=== PATIENT | male | born 1995 | race Caucasian/White ===

== ENCOUNTER 2020-10-28 15:32 | Emergency (ER) | payer BC ==
[~2020-10-28] VITALS: Ht 185.4 cm; Wt 96.3 kg
[2020-10-28] MEDS ORDERED: METOCLOPRAMIDE HCL 10 MG/2 ML VIAL. IVP ONE (16:15)
[2020-10-28] MEDS ORDERED: KETOROLAC 30 MG/ML VIAL. IVP ONE (16:15)
[2020-10-28] MEDS ORDERED: IV NORMAL SALINE 1,000ML 1,000 ML IV ONE (16:15)
[2020-10-28] MEDS ORDERED: diphenhydrAMINE 50 MG/ML VIAL IVP ONE (16:15)
[2020-10-28] MEDS ORDERED: ACETAMINOPHEN 325 MG TABLET PO ONE (16:15)
--- NOTE | 2020-10-28 17:09 | PHYS DOC ---
Past History Past Medical History: Migraines Past Surgical History: Other Additional Past Surgical Histo: WISDOM TEETH Alcohol Use: Rarely Adult General Chief Complaint Chief Complaint: HEADACHE HPI HPI Patient is a 24-year-old male presents to the emergency department with a chief complaint of ongoing headaches and fevers at home. Patient states he was seen 2 days ago at his primary care physician's office at the [facility] where he was diagnosed with bilateral otitis media and started on 750 mg amoxicillin to take twice a day for 10 days. Patient states he started evening for his first dose. Patient reports that he is having ongoing ear pain and headaches that are mildly relieved with [id number] Tylenol Motrin and Benadryl. Patient states he usually has complete relief with these medications when he gets his headaches. Patient states that he took an equal 8 Excedrin headache medication that helped quite a bit and currently rates his pain at a 5 out of 10. Patient denies nausea, vomiting, diarrhea, abdominal pains. Patient denies neck pains, neck stiffness, visual disturbances, nasal congestion or chest congestion. Patient denies photophobia. Patient denies any pain in his back. Patient denies any rashes of his skin. Patient denies any increased urination or increased thirst. Patient denies any other physical complaints or physical concerns. Patient reports an allergy to codeine. Patient states he does not take any other prescription medications at home. Review of Systems Review of Systems 14 body systems of review of systems have been reviewed. See HPI for pertinent positives and negative responses, otherwise all other systems are negative, nonpertinent or noncontributory. Current Medications Current Medications Current Medications Medications (Trade) Dose Ordered Sig/Nick Start Time Stop Time Status Last Admin Dose Admin Acetaminophen (Tylenol) 650 mg 1X ONCE 10/28/20 16:15 10/28/20 16:16 DC 10/28/20 16:26 650 MG Diphenhydramine HCl (Benadryl) 25 mg 1X ONCE 10/28/20 16:15 10/28/20 16:16 DC 10/28/20 16:23 25 MG Ketorolac Tromethamine (Toradol 30mg Vial) 30 mg 1X ONCE 10/28/20 16:15 10/28/20 16:16 DC 10/28/20 16:22 30 MG Metoclopramide HCl (Reglan Vial) 10 mg 1X ONCE 10/28/20 16:15 10/28/20 16:16 DC 10/28/20 16:24 10 MG Sodium Chloride 1,000 ml @ 1,000 mls/hr 1X ONCE 10/28/20 16:15 10/28/20 17:14 10/28/20 16:18 1,000 MLS/HR Allergies Allergies Allergies Coded Allergies Type Severity Reaction Last Updated Verified codeine Allergy Unknown 10/28/20 Yes Physical Exam Physical Exam Constitutional: Well developed, well nourished, no acute distress, non-toxic appearance. 24-year-old male in no apparent distress. HENT: Normocephalic, atraumatic, bilateral external ears normal, oropharynx moist, no oral exudates, nose normal. Bilateral TMs with air-fluid bubbles, not bulging, intact, no erythema appreciated, no purulence appreciated, bilateral external auditory canals within normal limits, no drainage. There is no lymphadenopathy of the head or neck appreciated. No uvular swelling, no peritonsillar swelling, there is mild peritonsillar erythema without edema. No laryngeal edema appreciated. Patient speaking in normal voice tones, no trismus , no drooling. Eyes: PERRLA, EOMI, conjunctiva normal, no discharge. No papilledema appreciated. Neck: Normal range of motion, no tenderness, supple, no stridor. No meningeal signs, no nuchal rigidity. Cardiovascular:Heart rate regular rhythm, no murmur, heart sounds S1-S2 to auscultation. Lungs & Thorax: Bilateral breath sounds clear to auscultation no adventitious lung sounds appreciated. Abdomen: Bowel sounds normal, soft, no tenderness, no masses, no pulsatile masses. Skin: Warm, dry, no erythema, no rash. Back: No tenderness, no CVA tenderness. Extremities: No tenderness, no cyanosis, no clubbing, ROM intact, no edema. Neurologic: Alert and oriented X 3, normal motor function, normal sensory function, no focal deficits noted. Psychologic: Affect normal, judgement normal, mood normal. Current Patient Data Vital Signs Vital Signs Date Time Temp Pulse Resp B/P (MAP) Pulse Ox O2 Delivery O2 Flow Rate FiO2 10/28/20 15:40 100.5 73 20 135/76 (95) 99 Room Air EKG EKG [] Radiology/Procedures Radiology/Procedures [] Heart Score C/O Chest Pain: No Risk Factors: Risk Factors: DM, Current or recent (<one month) smoker, HTN, HLP, family history of CAD, obesity. Risk Scores: Risk Factors: DM, Current or recent (<one month) smoker, HTN, HLP, family history of CAD, obesity. Course & Med Decision Making Course & Med Decision Making Pertinent Labs and Imaging studies reviewed. (See chart for details) 24-year-old male, vital signs reviewed, presents emergency department concerning a headache for 4 days. Patient's physical examination was unremarkable, patient did have a fever of 100.5 during triage, 650 mg p.o. Tylenol was ordered, did complain of moderate headache pain and rated a 5 out of 10. Patient denied a thunderclap onset, states his head pain is just been throbbing since he come down with his bilateral ear pains. Patient did not have any signs of meningitis. Initiated a headache cocktail with 1 L normal saline, 30 mg Toradol, 10 mg Reglan, 25 mg Benadryl IV infusion. Will wait a period of time and reevaluate patient. Headache cocktail infusion completed, upon reevaluation of the patient bedside vital signs are within normal limits, his oral temperature was 99.1. Patient states good relief of headache pains rating between a 0 and a 1. Patient states he is ready to go home. Discussed with patient to add [id number] Sudafed and increase his fluid intake during his antibiotic regimen to help with symptoms. Discussed with patient taking Tylenol and/or Motrin for fevers or chills at home. Patient gave verbal understanding of discharge home instructions, follow-up with PCP on Friday for reevaluation of symptoms, return to ER precautions and concerns, states he will continue to take his antibiotic regimen as directed by his primary care doctor, patient was discharged home without incident. Patient left from ER with steady gait, was nontoxic, was in no apparent distress. Dragon Disclaimer Dragon Disclaimer This electronic medical record was generated, in whole or in part, using a voice recognition dictation system. Departure Departure: Impression: Primary Impression: Headache Additional Impression: Upper respiratory infection Disposition: HOME / SELF CARE / HOMELESS Condition: GOOD Referrals: PCP,NO (PCP) Patient Instructions: General Headache Without Cause, Upper Respiratory Infection, Adult Additional Instructions: You were seen today in the emergency department for headache that has been going on for 4 days, you were diagnosed with bilateral ear infection with your previous care provider and started on amoxicillin regimen. You stated that the treatment today in the emergency department helped relieve your headache. Your symptoms are related to an upper respiratory infection as well, please use [id number] Sudafed and/or Zyrtec to help with your symptoms. Please continue to take Tylenol and or Motrin for pain and discomfort and fevers at home. Please continue to take your antibiotics as directed by your healthcare providers please return to the emergency department for worsening symptoms or other concerns. EMERGENCY DEPARTMENT GENERAL DISCHARGE INSTRUCTIONS Thank you for coming to [facility] (ED) today and trusting us with you care. We trust that you had a positivie experience in our Emergency Department. If you wish to speak to the department management, you may call the director at [phone]. YOUR FOLLOW UP INSTRUCTIONS ARE FOLLOWS: 1. Do you have a private Doctor? If you do not have a private doctor, please ask for a resource list of physicians or clinics that may be able to assist you with follow up care. 2. The Emergency Physician has interpreted your x-rays. The X-Ray specialist will also review them. If there is a change in the findings, you will be notified in 48 hours when at all possible. 3. A lab test or culture has been done, your results will be reviewed and you will be notified if you need a change in treatment. ADDITIONAL INSTRUCTIONS AND INFORMATION: 1. Your care today has been supervised by a physician who is specially trained in emergency care. Many problems require more than one evaluation for a complete diagnosis and treatment. We recommend that you schedule your follow up appointment as recommended to ensure complete treatment of you illness or injury. If you are unable to obtain follow up care and continue to have a problem, or if your condition worsens, we recommend that you return to the ED. 2. We are not able to safely determine your condition over the phone nor are we able to give sound medical advice over the phone. For these safety reasons, if you call for medical advice we will ask you to come to the ED for further evaluation. 3. If you have any questions regarding these discharge instructions please call the ED at [phone]. SAFETY INFORMATION: In the interest of safety, wellness, and injury prevention; we encourage you to wear your sealbelt, if you smoke; quite smoking, and we encourage family to use a protective helmet for bicycling and other sporting events that present an increased risk for head injury. IF YOUR SYMPTOMS WORSEN OR NEW SYMPTOMS DEVELOP, OR YOU HAVE CONCERNS ABOUT YOUR CONDITION; OR IF YOUR CONDITION WORSENS WHILE YOU ARE WAITING FOR YOUR FOLLOW UP APPOINTMENT; EITHER CONTACT YOUR PRIMARY CARE DOCTOR, THE PHYSICIAN WHOSE NAME AND NUMBER YOU WERE GIVEN, OR RETURN TO THE ED IMMEDIATELY. Problem Qualifiers Primary Impression: Headache Headache type: unspecified Headache chronicity pattern: acute headache Intractability: not intractable Qualified Codes: R51.9 - Headache, unspecified Additional Impression: Upper respiratory infection URI type: unspecified URI Qualified Codes: J06.9 - Acute upper respiratory infection, unspecified DAISY FELIX APRN Oct 28, 2020 17:09
[2020-10-28 17:25] VITALS: BP 148/76
== END 2020-10-28 17:30 | disposition home or self-care (01) ==
LOC: ER 15:32
DX: R51.9 Headache, unspecified (principal); J06.9 Acute upper respiratory infection, unspecified; Z88.5 Allergy status to narcotic agent
CPT/HCPCS: 96361; 96374; 96375; 99284; J1200; J1885; J2765; J7030

== ENCOUNTER 2020-11-20 20:11 | Emergency (ER) | payer BC ==
[~2020-11-20] VITALS: Ht 185.4 cm; Wt 93.6 kg
--- NOTE | 2020-11-20 20:43 | PHYS DOC ---
Past History Past Medical History: Migraines Past Surgical History: Other Additional Past Surgical Histo: WISDOM TEETH Alcohol Use: Occasionally Adult General Chief Complaint Chief Complaint: HEAD INJURY/TRAUMA HPI HPI Patient is a otherwise healthy 25-year-old male who is not up-to-date on tetanus vaccinations presents to the ED with a chief complaint of scalp laceration. States he opened his cabinet door, bent down to pick something up and when he came up hit the top of his head on the corner of the cabinet door. States he had some bleeding there for a few minutes and then it stopped. States that this happened just before coming to the ED. Denies any headache, loss of consciousness, changes in vision, neck pain, nausea, vomiting. States he otherwise feels fine and it does not hurt that much. Denies need for any pain or nausea medicine. Review of Systems Review of Systems Review of systems otherwise unremarkable except noted in HPI. Allergies Allergies Allergies Coded Allergies Type Severity Reaction Last Updated Verified codeine Allergy Unknown 10/28/20 Yes Physical Exam Physical Exam Constitutional: Well developed, well nourished, no acute distress, non-toxic appearance. [] HENT: Normocephalic, atraumatic, bilateral external ears normal, oropharynx moist, no oral exudates, nose normal. [] Eyes: PERRLA, EOMI, conjunctiva normal, no discharge. [] Neck: Normal range of motion, no tenderness, supple, no stridor. [] Cardiovascular:Heart rate regular rhythm, no murmur [] Neurologic: Alert and oriented X 3, normal motor function, normal sensory function, able to sit, stand and walk without issue no focal deficits noted. [] Psychologic: Affect normal, judgement normal, mood normal. [] Current Patient Data Vital Signs Vital Signs Date Time Temp Pulse Resp B/P (MAP) Pulse Ox O2 Delivery O2 Flow Rate FiO2 11/20/20 20:18 98.3 74 16 132/73 (92) 99 Room Air EKG EKG [] Radiology/Procedures Radiology/Procedures [] Heart Score C/O Chest Pain: No Risk Factors: Risk Factors: DM, Current or recent (<one month) smoker, HTN, HLP, family history of CAD, obesity. Risk Scores: Risk Factors: DM, Current or recent (<one month) smoker, HTN, HLP, family history of CAD, obesity. Course & Med Decision Making Course & Med Decision Making Patient is a 25-year-old male that presents with a scalp laceration Vital signs not concerning. Physical exam noted above. Tetanus updated. No need for repair. Wound cleaned extensively. Discussed wound management at home. Gave education on wound management. Advised to follow-up with primary care physician. Gave pain management recommendations for home. Gave return precautions to the ED. Patient grateful, verbalized understanding and agreed with plan of discharge. [] Dragon Disclaimer Dragon Disclaimer This electronic medical record was generated, in whole or in part, using a voice recognition dictation system. Departure Departure: Impression: Primary Impression: Scalp laceration Disposition: HOME / SELF CARE / HOMELESS Condition: GOOD Referrals: COLE STARKS MD Patient Instructions: Wound Care, [id number] Additional Instructions: Thank you for coming into the emergency department tonight and allowing us to take care of you. Please read the attached information very carefully. Please keep the area clean and dry as discussed. You can use Tylenol, ibuprofen and ice as needed. Please follow-up with your primary care physician as needed. Please come back to the ED with new or concerning symptoms as discussed. VINNIE KONG MD Nov 20, 2020 20:43
[2020-11-20] MEDS ORDERED: DIPH,PERTUSS(ACELL),TET VAC/PF 0.5 ML SYRINGE. VAX IM ONE ×2 (20:44→20:45)
[2020-11-20 20:46] VITALS: BP 116/67
== END 2020-11-20 20:52 | disposition home or self-care (01) ==
LOC: ER 20:11
DX: S01.01XA Laceration without foreign body of scalp, initial encounter (principal); G43.909 Migraine, unspecified, not intractable, without status migrainosus; Z88.5 Allergy status to narcotic agent; W22.8XXA Striking against or struck by other objects, initial encounter; Y93.89 Activity, other specified; Y92.89 Other specified places as the place of occurrence of the external cause; Y99.8 Other external cause status
CPT/HCPCS: 90471; 90715; 99283